=== PATIENT | female | born 1955 | race Caucasian/White ===

== ENCOUNTER 2019-03-26 09:03 | Emergency (ER) | payer MEDICARE, OTHER ==
[2019-03-26 09:31] VITALS: BP 159/75
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
[2019-03-26 14:38] LABS: ABS Eosinophils 0.2 10^3/ul (0-0.6); ABS Lymphocytes 1.9 10^3/ul (1.0-4.8); ABS Monocytes 0.3 10^3/ul (0-0.8); ABS Neutrophils 5.7 10^3/ul (1.5-7.7); Eosinophil % 2.6 %; Hematocrit 43 % (35-47); Hemoglobin 14.9 g/dL (12.0-16.0); Lymphocyte % 23.3 %; Mean Corpuscular HGB Conc 35 g/dL (31-36); Mean Corpuscular Hemoglobin 34 pg (27-31); Mean Corpuscular Volume 96 fL (80-97); Mean Platelet Volume 7.6 fL (7.4-10.4); Platelet Count 302 10^3/uL (150-450); Red Blood Count 4.44 10^6 /uL (3.70-4.87); Red Cell Distribution Width 13 % (10-15); White Blood Count 8.2 10^3/uL (3.5-10.8)
[2019-03-26 14:46] LABS: Albumin 4.5 g/dL (3.2-5.2); Calcium 9.6 mg/dL (8.6-10.3); Potassium 4.2 mmol/L (3.5-5.0); Total Bilirubin 0.5 mg/dL (0.2-1.0)
[2019-03-26 14:52] LABS: Albumin/Globulin Ratio 1.7 (1-3); BUN/Creatinine Ratio 13.8 (8-20); EGFR African American 111.8 (>60); EGFR Non-African American 92.4 (>60); Globulin 2.7 g/dL (2-4); Total Protein 7.2 g/dL (6.4-8.9)
[2019-03-26 15:17] LABS: Hepatitis B Surface Antigen Negative (Negative)
[2019-03-26 15:34] LABS: Hepatitis C Antibody Negative (Negative)
--- NOTE | 2019-03-27 07:33 | UC ---
- Progress Note Progress Note: Lab results reviewed: cbc and CMP: normal white count Blood glucose is 142. HCV index of 0.01, which is negative she was seen in morning and possible its fasting blood sugar. RN to call patient and inform her of blood sugar levels and recommend follow up with PCP. Course/Dx - Diagnoses Provider Diagnoses: Sinusitis, Abdominal pain Discharge - Sign-Out/Discharge Documenting (check all that apply): Post-Discharge Follow Up All imaging exams completed and their final reports reviewed: No Studies - Discharge Plan Condition: Good Disposition: HOME Prescriptions: Amoxicillin PO (*) [Amoxicillin 500 MG CAP*] 500 mg PO TID #30 cap Fluticasone NASAL SPRAY 50MCG* [Flonase NASAL SPRAY 50MCG*] 2 spray BOTH NARES DAILY #1 btl Omeprazole 20 mg PO DAILY #30 tab. Patient Education Materials: Sinusitis (ED), Abdominal Pain (ED) Referrals: [facility] [Outside] Nadja Campos MD [Medical Doctor] - No Primary Care Phys,NOPCP [Primary Care Provider] - - Billing Disposition and Condition Condition: GOOD Disposition: Home
== END 2019-03-26 09:58 | disposition home or self-care (01) ==
LOC: UCCORT 09:03
DX: J32.9 Chronic sinusitis, unspecified (principal); R10.84 Generalized abdominal pain; F17.210 Nicotine dependence, cigarettes, uncomplicated
CPT/HCPCS: 36415; 80053; 83690; 85025; 86803; 87340; 99202; G0463